=== PATIENT | male | born 1945 | race Caucasian/White ===

== ENCOUNTER → 2017-08-02 00:26 | Outpatient (REF) | payer OTHER, SELFPAY ==
[2017-08-02 00:51] LABS: Microscopic, Urine URINE MICROSCOPIC (MICROSCOPIC)
[2017-08-02 00:57] LABS: Appearance,Urine CLOUDY (Clear); Bilirubin,Urine Negative (Negative); Blood, Urine 1+ (Negative); Color,Urine YELLOW (Yellow); Glucose,Urine (UA) Negative (Negative); Ketones,Urine Negative (Negative); Leukocyte Esterase,Urine 3+ (Negative); Nitrate,Urine POSITIVE (Negative); Protein,Urine TRACE (Negative)
[2017-08-02 00:58] LABS: PH,Urine >= 9.0 (5.0-8.5)
[2017-08-02 01:02] LABS: Amorphous Sediment,Urine 1+ /lpf; Bacteria,Urine 1+ /lpf; RBC,Urine 20-50 #/hpf (0-3); Triple Phosphate Crystal,Urine 2+ /lpf; WBC,Urine 20-50 #/hpf (0-3)
== END ==
LOC: LAB 00:26
PROVIDERS: Visit Provider Internal Medicine
DX: N39.0 Urinary tract infection, site not specified (principal)
CPT/HCPCS: 81001; 87086; 87088; 87186

== ENCOUNTER 2017-09-30 03:50 | Inpatient (IN) ==
[2017-09-30 04:18] LABS: Basophils % 0.2 % (0.1-2.0); Eosinophils # 0.3 K/mm3 (0.0-0.4); Eosinophils % 2.8 % (0.1-12.0); Hematocrit 34.4 % (42.0-52.0); Hemoglobin 10.4 g/dL (14.1-18.0); Lymphocytes # 2.7 K/mm3 (0.7-4.5); Lymphocytes % 23.3 K/mm3 (10-50); Mean Corpuscular HGB Conc 30.2 g/dL (31.8-35.4); Mean Corpuscular Hemoglobin 32.6 pg (27.0-31.2); Mean Corpuscular Volume 108.2 fl (80-94); Mean Platelet Volume 10.6 fl (7.4-10.4); Monocytes # 0.9 K/mm3 (0.1-1.0); Monocytes % 7.8 % (1.7-9.3); Neutrophils # 7.5 K/mm3 (1.8-7.8); Neutrophils % 65.8 % (37.0-80.0); Platelet Count 205 K/mm3 (142-424); Red Blood Count 3.18 M/mm3 (4.60-6.20); Red Cell Distribution Width 15.8 % (11.5-17.5); White Blood Count 11.3 K/mm3 (4.8-10.8)
[2017-09-30 04:43] LABS: Microscopic, Urine URINE MICROSCOPIC (MICROSCOPIC)
[2017-09-30 04:44] LABS: Alanine Aminotransferase 10 U/L (12-78); Albumin/Globulin Ratio 0.3 (1.1-1.8); Alkaline Phosphatase 108 U/L (46-116); Anion Gap 7.3 mEq/L (5-15); Aspartate Amino Transferase 19 U/L (15-37); Bilirubin,Total 0.6 mg/dL (0.2-1.0); Blood Urea Nitrogen 43 mg/dL (7-18); Calcium 8.1 mg/dL (8.5-10.1); Carbon Dioxide 30 mmol/L (21.0-32.0); Chloride 102 mmol/L (98-107); Creatine Kinase 51 U/L (39-308); Globulin 7.8 gm/dl (1.3-3.2); Glucose 159 mg/dL (74-106); Potassium 4.3 mmoL/L (3.5-5.1); Sodium 135 mmol/L (136-145); Total Protein,Serum 9.8 gm/dL (6.4-8.2); Valproic Acid, (Depakene) 57.1 ug/mL (50-100)
[2017-09-30 04:44] LABS: Appearance,Urine CLEAR (Clear); Bilirubin,Urine Negative (Negative); Blood, Urine 3+ (Negative); Color,Urine YELLOW (Yellow); Glucose,Urine (UA) Negative (Negative); Ketones,Urine Negative (Negative); Leukocyte Esterase,Urine 2+ (Negative); Protein,Urine 2+ (Negative); Specific Gravity, Urine 1.015 (1.005-1.030)
[2017-09-30 04:47] LABS: Bacteria,Urine 2+ /lpf
--- NOTE | 2017-09-30 05:12 | Emergency Department Note ---
ED Disposition Clinical Impression: Febrile illness, acute, HCAP (healthcare-associated pneumonia), Renal insufficiency Disposition: Admitted As Inpatient Condition on Discharge: Serious - Critical Care Critical Care Time: No Attestation: On 09/30/17, the high probability of a clinically significant, sudden or life threatening deterioration of the following system(s) required my full and direct attention, intervention and personal management. The time I documented below is in addition to time spent performing reported procedures but includes the following listed in this critical care notation. Medical Decision Making - Medical Records Medical records reviewed: Yes: I reviewed the patient's medical records. - [place] Inquiry Pt receiving controlled substance: No Vital Signs: 09/30/17 03:51 Temperature Source Rectal Pulse Rate [Right Radial] 105 H Respiratory Rate 24 Blood Pressure [Right Arm] 131/68 Blood Pressure Mean [Right Arm] 89 Blood Pressure Position [Right Arm] Sitting 02 Sat by Pulse Oximetry 97 Oxygen Delivery Method Nasal Cannula Oxygen Flow Rate (LPM) 6 - Lab Data Lab results reviewed: Yes: I reviewed the patient's lab results. Lab Results 09/30/17 04:03: WBC 11.3 H, RBC 3.18 L, Hgb 10.4 L, Hct 34.4 L, MCV 108.2 H, MCH 32.6 H, MCHC 30.2 L, RDW 15.8, Plt Count 205, MPV 10.6 H, Neut % (Auto) 65.8 , Lymph % (Auto) 23.3, [place] % (Auto) 7.8, Eos % (Auto) 2.8, Baso % (Auto) 0.2, Neut # (Auto) 7.5, Lymph # (Auto) 2.7, [place] # (Auto) 0.9, Eos # (Auto) 0.3, Baso # (Auto) 0.0 09/30/17 04:03: Sodium 135 L, Potassium 4.3, Chloride 102, Carbon Dioxide 30, Anion Gap 7.3, BUN 43 H, Creatinine 1.15, Estimated Creat Clear 98, Estimated GFR 63, Est GFR ( Amer) 76, Glucose 159 H, Calcium 8.1 L, Total Bilirubin 0.6, AST 19, ALT 10 L, Alkaline Phosphatase 108, Total Creatine Kinase 51, CK-MB (CK-2) < 0.5, CK-MB (CK-2) Rel Index 1.0, Troponin I < 0.02, Total Protein 9.8 H, Albumin 2.0 L, Globulin 7.8 H, Albumin/Globulin Ratio 0.3 L , Total Valproic Acid 57.1 09/30/17 04:03: Lactic Acid 1.6 09/30/17 04:25: Urine Color Yellow, Urine Appearance Clear, Urine pH 6.0, Ur Specific [place] 1.015, Urine Protein 2+, Urine Glucose (UA) Negative, Urine Ketones Negative, Urine Blood 3+, Urine Nitrate Negative, Urine Bilirubin Negative, Urine Urobilinogen 4.0, Ur Leukocyte Esterase 2+ A, Urine RBC 10-20, Urine WBC 10-20, Urine Bacteria 2+ Result diagrams: 09/30/17 04:03 09/30/17 04:03 Orders (Tests/Meds): ED MEDICATIONS Discontinued Medications Generic Name Dose Route Start Last Admin Trade Name Freq PRN Reason Stop Dose Admin Acetaminophen 325 mg 09/30/17 04:15 09/30/17 04:29 Tylenol 325mg Suppository 09/30/17 04:16 Not Given ONCE ONE Acetaminophen 650 mg 09/30/17 04:16 09/30/17 04:29 Acetaminophen 650mg Suppository 09/30/17 04:17 650 mg ONCE ONE Administration ORDERS Category Date Time Status Blood Culture Stat Micro 09/30/17 04:03 Received Sputum Culture & Gram Stain Stat Micro 09/30/17 05:15 Received Urine Culture Stat Micro 09/30/17 04:25 Received - Radiology Data #1 Image(s): Chest Image Reviewed: Yes I reviewed the patient's radiology image Preliminary Findings: Abnormal (possible inflitrates ) - ECG Data Tracing #1 I reviewed this ECG and interpreted as documented below: Arrhythmias present: sinus tach Ischemic changes: non-specific ST-T wave changes - Physician Consults Physician Consulted: francisca Reason -: Admission Resp/SOB HPI - General Chief Complaint: Fever Stated Complaint: FEVER Time Seen by Provider: 09/30/17 05:03 Mode of Arrival: EMS Source of Information: EMS, Medical Record Limitations: Physical Limitations Description of Symptoms (Recalled from ER Triage Doc. by RN): PT HAD NAUSEA/ VOMITING EARLIER TODAY, SUSPECTED ASPIRATION. SENIOR CARE REPORTS FEVER ABOVE 100 DEGREES, RESP DISTRESS AND LOW O2 SATS. - History of Present Illness pt sent from [facility] for eval of inc resp sx after 2 episodes of vomiting and had elevated temp- no other issues reported by ems - MD Complaint: shortness of breath Onset (ago): hour(s) Context: choking/aspiration Severity: moderate Treatment prior to arrival: oxygen - Related Data Home oxygen amount: 4 liters Home Medications Medication Instructions Recorded Confirmed Carboxymethylcellulos/Glycerin 15 ml OP BID 09/30/17 09/30/17 [Refresh Optive Eye Drops] Clonazepam 0.5 mg pe J-TUBE BID 09/30/17 09/30/17 Hydrocodone-Acetamin 10-325 mg 10 mg J-TUBE TID 09/30/17 09/30/17 Metoprolol Tartrate 25 mg J-TUBE BID 09/30/17 09/30/17 Polyethylene Glycol 3350 [Miralax 17 gm J-TUBE DIRECTED PRN 09/30/17 09/30/17 17gm Packet] Topiramate 50 mg J-TUBE BID 09/30/17 09/30/17 Valproic Acid (As Sodium Salt) 750 mg PO BID 09/30/17 09/30/17 [Valproic Acid] Allergies Allergy/AdvReac Type Severity Reaction Status Date / Time tuberculin, purified protein Allergy Mild Verified 09/30/17 04:00 deriva [tuberculin,purif.prot.deriv.] [facility] History I have reviewed the patient's past medical history: Yes Medical History: Denies:: Cancer, Diabetes Mellitus Type 1, Diabetes Mellitus Type 2 Amputation: No Fractures: No - Social History Alcohol Intake: never - Psychiatric History Expresses thoughts of harming self/others: None Suicide Plan Description: No Plan ROS Obtained: Yes unobtainable due to mental status, Yes other (obtained from [facility] ) - Constitutional Constitutional: Reports fever(s) - Eyes Eyes: Reports change in vision, Denies eye discharge - ENT Ears, Nose, Mouth, and Throat: Denies sore throat - Cardiovascular Cardiovascular: Denies chest pain, Reports dyspnea, Reports leg edema - Respiratory Respiratory: Yes chest congestion, Yes cough, Yes dyspnea, No coughing up blood - Gastrointestinal Gastrointestingal: Reports: vomiting. Denies: abdominal pain - Genitourinary Male Genitourinary: Reports other (has chronic davis) - Musculoskeletal Musculoskeletal: Denies joint pain - Integumentary/Breasts Skin/Breast: Denies rash - Neurologic Neurologic: Denies seizure-like activity Physical Exam - General General appearance: in no apparent distress, other (awake but min resp ) - Head Head exam: atraumatic, other (old scars) - Eye Eye exam: Present: other (no focal changes ) - ENT ENT exam: Present: mucous membranes dry - Neck Neck exam: Present: trachea midline - Respiratory Respiratory exam: Present: other (dec bs bilat ). Absent: respiratory distress - Cardiovascular Cardiovascular exam: Present: regular rate, systolic murmur, +S4 - Abdominal Exam Abdominal exam: Present: soft - Extremities Exam Extremities exam: Present: other (bilat edema ) - Back Exam Comment: has known decubitus - Neurological Exam Neurological exam: Present: other (no posturing and obtunded ) - Skin Skin exam: Present: other (skin changes heels and buttocks )
--- NOTE | 2017-09-30 07:38 | Pharmacy Consult Notes ---
[facility] Pharmacy VTE Monitoring - Patient Demographics Admission date: 09/30/17 Report Date: 09/30/17 Time: 07:37 Allergies/Adverse Reactions: Patient Allergies tuberculin, purified protein deriva [tuberculin,purif.prot.deriv.] Allergy (Mild , Verified 09/30/17 06:58) Height: 1.83 m Weight: 103.873 kg Patient Problems: Current Active Problems Febrile illness, acute (Acute) HCAP (healthcare-associated pneumonia) (Acute) Renal insufficiency (Acute) - VTE Risk Labs: VTE Related Lab Results Hgb 10.4 g/dL (14.1-18.0) L 09/30/17 04:03 Hct 34.4 % (42.0-52.0) L 09/30/17 04:03 Plt Count 205 K/mm3 (142-424) 09/30/17 04:03 BUN 43 mg/dL (7-18) H 09/30/17 04:03 Creatinine 1.15 mg/dL (0.70-1.30) 09/30/17 04:03 Estimated Creat Clear 98 mL/min (0-300) 09/30/17 04:03 Was VTE Risk Assessment Performed: Yes VTE Score: 4 VTE Risk Level: Low Risk Clinical Trial Participant: No - Prophylaxis VTE Prophylaxis Ordered?: Yes Types of VTE Prophylaxis: TEDS Knee High
--- NOTE | 2017-09-30 09:45 | History & Physical Report ---
*Admission Date: 09/30/17 *Chief complaint: Respiratory distress *History of present illness: Mr Robles is a 72 year old male resident of [facility] and patient of Dr. Dooley who developed an increase in respiratory symptoms and temperature. He also vomited x2. Patient has multiple medical issues to include pressures ulcers, History of traumatic brain injury, HTN, chronic kidney disease, anemia, dementia and convulsions. He was sent to [facility] ER per EMS for further evaluation and treatment. He was felt to have a pneumonia and thus admitted. Patient does not communicate and information is obtained from his record and from nursing. I spoke with the nursing at [place]. Patient is bedfast. He receives Tube feeding of Jevity 1.5 at 45ml/hour with 200ml flushes q4h. [facility] History I have reviewed the patient's past medical history: Yes Medical History: Reports:: Dementia, Depression, Hypertension, Peripheral Vascular Disease, Seizures Denies:: Cancer, Diabetes Mellitus Type 1, Diabetes Mellitus Type 2, Internal Pacemaker, MRSA Other Medical History: Reports: Anemia, Osteoporosis Other Surgeries: No: Pacemaker Amputation: No Fractures: No - *Social History Alcohol Intake: never Occupational Status: disabled Housing: alf - Psychiatric History Expresses thoughts of harming self/others: None Suicide Plan Description: No Plan *Family Hx:: Unable to obtain Review of Systems - Review of Systems Review of systems:: unable to obtain - *Neurologic Denies seizure-like activity Meds Home Medications Medication Instructions Recorded Confirmed Type Acetaminophen 500 mg G-TUBE Q6HP PRN 09/30/17 09/30/17 History Albuterol Sulfate [Albuterol 2.5 mg IH Q6HP PRN 09/30/17 09/30/17 History 0.083% 2.5mg/3mL neb] Bisacodyl [Bisacodyl 10mg Supp] 10 mg RC DAILYP PRN 09/30/17 09/30/17 History Carboxymethylcellulos/Glycerin 15 ml OP BID 09/30/17 09/30/17 History [Refresh Optive Eye Drops] Hydrocodone/Acetaminophen 1 each J-TUBE TID 09/30/17 09/30/17 History [Hydrocodone-Acetamin 10-325 mg] Hyoscyamine Sulfate 0.125 mg PO Q4HP PRN 09/30/17 09/30/17 History Lactulose [Lactulose 10gm/15ml 10 gm G-TUBE DAILYP PRN 09/30/17 09/30/17 History Oral Soln] Loperamide HCl [Loperamide] 2 mg G-TUBE Q3HP PRN 09/30/17 09/30/17 History Metoprolol Tartrate [Lopressor 25 mg J-TUBE BID 09/30/17 09/30/17 History 25mg tablet] Ondansetron HCl [Ondansetron 4mg 4 mg G-TUBE DAILYP PRN 09/30/17 09/30/17 History Tab] Polyethylene Glycol 3350 [Miralax 17 gm G-TUBE DIRECTED PRN 09/30/17 History 17gm Packet] Promethazine HCl [Promethazine 25 mg RC Q6HP PRN 09/30/17 09/30/17 History 50mg Supp] Topiramate 50 mg G-TUBE BID 09/30/17 09/30/17 History Valproic Acid (As Sodium Salt) 750 mg PO TID 09/30/17 09/30/17 History [Valproic Acid] clonazePAM [Klonopin] 0.5 mg J-TUBE BID 09/30/17 09/30/17 History guaiFENesin [Guaifenesin] 400 mg G-TUBE TID PRN 09/30/17 09/30/17 History guaiFENesin [Robafen] 200 mg G-TUBE Q4HP PRN 09/30/17 09/30/17 History Allergies Allergy/AdvReac Type Severity Reaction Status Date / Time tuberculin, purified protein Allergy Mild Verified 09/30/17 06:58 deriva [tuberculin,purif.prot.deriv.] Exam Vital signs and Labs for Last 24 Hours: Temp Pulse Resp BP Pulse Ox 99.6 F 93 H 20 135/63 94 L 09/30/17 07:22 09/30/17 07:22 09/30/17 07:22 09/30/17 07:22 09/30/17 07:22 I & O for Last 24 hours: Intake & Output 09/27/17 09/28/17 09/29/17 09/30/17 11:59 11:59 11:59 11:59 Intake Total 0 / 0 Output Total 650 / 650 Balance -650 / -650 Weight 229 lb Radiology Reports for the Last 24 Hours: 09/30/17 CXR IMPRESSION: Lower lung volumes with atelectasis or infiltrate in the lung bases - Constitutional chronically ill appearing Comments: many secretions requiring suctioning - *Routine HEENT Exam Head: Present: normocephalic, atraumatic ENT: Present: mucous membranes moist Comments: many secretions - *Routine Respiratory Exam Present: rhonchi (bilateral) - *Routine Cardiovascular Exam Present: RRR - *Routine Abdominal Exam Present: soft, normoactive bowel sounds. Absent: distended Comments: GT and SP cath - *Routine Extremities Exam Present: edema - *Routine Skin Exam Present: wounds (bilateral heels and buttocks/coccyx) - *Routine Neurological Exam Present: sensory deficit, motor deficit responds by opening his eyes Assessment and Plan (1) Personal history of traumatic brain injury Current visit: Yes Status: Chronic Category: Medical Code(s): Z87.820 - Personal history of traumatic brain injury (2) Pressure ulcer of both heels Current visit: Yes Status: Acute Category: Medical Code(s): L89.619 - Pressure ulcer of right heel, unspecified stage; L89.629 - Pressure ulcer of left heel, unspecified stage (3) Pressure ulcer of buttock Current visit: Yes Status: Acute Category: Medical Code(s): L89.309 - Pressure ulcer of unspecified buttock, unspecified stage (4) PVD (peripheral vascular disease) Current visit: Yes Status: Chronic Category: Medical Code(s): I73.9 - Peripheral vascular disease, unspecified (5) Iron deficiency anemia Current visit: Yes Status: Acute Category: Medical Code(s): D50.9 - Iron deficiency anemia, unspecified (6) Convulsions Current visit: Yes Status: Chronic Category: Medical Code(s): R56.9 - Unspecified convulsions (7) Dementia Current visit: Yes Status: Chronic Category: Medical Code(s): F03.90 - Unspecified dementia without behavioral disturbance (8) Febrile illness, acute Current visit: Yes Status: Acute Category: Medical Code(s): R50.9 - Fever , unspecified (9) HCAP (healthcare-associated pneumonia) Current visit: Yes Status: Acute Category: Medical Code(s): J18.9 - Pneumonia, unspecified organism - Assessment and plan all Dx Assessment and Plan for all problems:: IVF; some of regular meds have been restarted; ABX. cultures have been obtained of the heels as well
--- NOTE | 2017-09-30 11:14 | Pharmacy Consult Notes ---
- Pharmacy Consult Date: 09/30/17 Time: 11:14 Referring provider: DR. CASTILLO Reason for Consult:: VANCOMYCIN DOSING Allergies and ADEs:: Allergies Allergy/AdvReac Type Severity Reaction Status Date / Time tuberculin, purified protein Allergy Mild Verified 09/30/17 06:58 deriva [tuberculin,purif.prot.deriv.] Home Medications:: Home Medications Medication Instructions Recorded Confirmed Type Acetaminophen 500 mg G-TUBE Q6HP PRN 09/30/17 09/30/17 History Albuterol Sulfate [Albuterol 2.5 mg IH Q6HP PRN 09/30/17 09/30/17 History 0.083% 2.5mg/3mL neb] Bisacodyl [Bisacodyl 10mg Supp] 10 mg RC DAILYP PRN 09/30/17 09/30/17 History Carboxymethylcellulos/Glycerin 15 ml OP BID 09/30/17 09/30/17 History [Refresh Optive Eye Drops] Clonazepam 0.5 mg pe G-TUBE BID 09/30/17 09/30/17 History Hydrocodone-Acetamin 10-325 mg 10 mg G-TUBE TID 09/30/17 09/30/17 History Hyoscyamine Sulfate 0.125 mg PO Q4HP PRN 09/30/17 09/30/17 History Lactulose [Lactulose 10gm/15ml 10 gm G-TUBE DAILY 09/30/17 09/30/17 History Oral Soln] Loperamide HCl [Loperamide] 2 mg G-TUBE Q3HP PRN 09/30/17 09/30/17 History Metoprolol Tartrate 25 mg G-TUBE BID 09/30/17 09/30/17 History Ondansetron HCl [Ondansetron 4mg 4 mg G-TUBE DAILY 09/30/17 09/30/17 History Tab] Polyethylene Glycol 3350 [Miralax 17 gm G-TUBE DIRECTED PRN 09/30/17 History 17gm Packet] Promethazine HCl [Promethazine 25 mg RC Q6HP PRN 09/30/17 09/30/17 History 50mg Supp] Topiramate 50 mg G-TUBE BID 09/30/17 09/30/17 History Valproic Acid (As Sodium Salt) 750 mg PO BID 09/30/17 09/30/17 History [Valproic Acid] guaiFENesin [Guaifenesin] 400 mg G-TUBE TID PRN 09/30/17 09/30/17 History guaiFENesin [Robafen] 200 mg G-TUBE Q4HP PRN 09/30/17 09/30/17 History Height: 1.83 m Weight: 103.873 kg Laboratory Results:: CR=1.15 Medical History: Reports:: Dementia, Depression, Hypertension, Osteoporosis, Peripheral Vascular Disease, Seizures Denies:: Cancer, Diabetes Mellitus Type 1, Diabetes Mellitus Type 2, Internal Pacemaker, MRSA Assessment and Plan (1) Personal history of traumatic brain injury Current visit: Yes Status: Chronic Category: Medical Code(s): Z87.820 - Personal history of traumatic brain injury (2) Pressure ulcer of both heels Current visit: Yes Status: Acute Category: Medical Code(s): L89.619 - Pressure ulcer of right heel, unspecified stage; L89.629 - Pressure ulcer of left heel, unspecified stage (3) Pressure ulcer of buttock Current visit: Yes Status: Acute Category: Medical Code(s): L89.309 - Pressure ulcer of unspecified buttock, unspecified stage (4) PVD (peripheral vascular disease) Current visit: Yes Status: Chronic Category: Medical Code(s): I73.9 - Peripheral vascular disease, unspecified (5) Iron deficiency anemia Current visit: Yes Status: Acute Category: Medical Code(s): D50.9 - Iron deficiency anemia, unspecified (6) Convulsions Current visit: Yes Status: Chronic Category: Medical Code(s): R56.9 - Unspecified convulsions (7) Dementia Current visit: Yes Status: Chronic Category: Medical Code(s): F03.90 - Unspecified dementia without behavioral disturbance (8) Febrile illness, acute Current visit: Yes Status: Acute Category: Medical Code(s): R50.9 - Fever , unspecified (9) HCAP (healthcare-associated pneumonia) Current visit: Yes Status: Acute Category: Medical Code(s): J18.9 - Pneumonia, unspecified organism - Assessment and plan all Dx Assessment and Plan for all problems:: BASED ON PATIENT FACTORS, RECOMMEND VANCOMYCIN 2250 MG IV ONCE, THEN VANCOMYCIN 2 GM IV Q18H. PHARMACY WILL FOLLOW DAILY AND ADJUST APPROPRIATE.
[2017-10-01 07:29] LABS: Basophils % 0.1 % (0.1-2.0); Eosinophils # 0.1 K/mm3 (0.0-0.4); Hematocrit 30.1 % (42.0-52.0); Hemoglobin 9.2 g/dL (14.1-18.0); Lymphocytes # 1.7 K/mm3 (0.7-4.5); Lymphocytes % 25.5 K/mm3 (10-50); Mean Corpuscular HGB Conc 30.7 g/dL (31.8-35.4); Mean Corpuscular Hemoglobin 32.6 pg (27.0-31.2); Mean Corpuscular Volume 106.4 fl (80-94); Mean Platelet Volume 10.4 fl (7.4-10.4); Monocytes # 0.6 K/mm3 (0.1-1.0); Monocytes % 8.6 % (1.7-9.3); Neutrophils # 4.1 K/mm3 (1.8-7.8); Neutrophils % 63.7 % (37.0-80.0); Platelet Count 146 K/mm3 (142-424); Red Blood Count 2.83 M/mm3 (4.60-6.20); Red Cell Distribution Width 15.6 % (11.5-17.5); White Blood Count 6.4 K/mm3 (4.8-10.8)
[2017-10-01 07:39] LABS: Anion Gap 7.8 mEq/L (5-15); Potassium 3.8 mmoL/L (3.5-5.1)
--- NOTE | 2017-10-01 08:24 | Progress Note ---
Addendum entered and electronically signed by Sybil Pro APRN 10/01/17 08: 50: Original Note: Internal Medicine - PN: Subj *Date: 10/01/17 *Time: 08:21 Interval history: Patient is nonverbal. Per nursing: Requires frequent suctioning. He has had no residual from his G-tube. Has an adequate urinary output for suprapubic catheter. Patient was visited by hospice executive director yesterday who states she has a hospice patient. He is a sam of the formerly [facility] and nursing staff has been able to reach his power of workers compensation attorney. Exam Vital signs and Labs for Last 24 Hours: Temp Pulse Resp BP Pulse Ox 98.4 F 80 20 105/50 96 10/01/17 07:51 10/01/17 07:51 10/01/17 07:51 10/01/17 07:51 10/01/17 07:51 Laboratory Results - last 24 hr 10/01/17 07:15: WBC 6.4 D, RBC 2.83 L, Hgb 9.2 L, Hct 30.1 L, MCV 106.4 H, MCH 32.6 H, MCHC 30.7 L, RDW 15.6, Plt Count 146 D, MPV 10.4, Neut % (Auto) 63.7, Lymph % (Auto) 25.5, [place] % (Auto) 8.6, Eos % (Auto) 2.0, Baso % (Auto) 0.1, Neut # (Auto) 4.1, Lymph # (Auto) 1.7, [place] # (Auto) 0.6, Eos # (Auto) 0.1, Baso # (Auto) 0.0 10/01/17 07:15: Sodium 139, Potassium 3.8, Chloride 106, Carbon Dioxide 29, Anion Gap 7.8, BUN 42 H, Creatinine 1.07, Estimated Creat Clear 96, Estimated GFR 68, Est GFR ( Amer) 82, Glucose 110 H, Phosphorus 4.0, Magnesium 2.7 H I & O for Last 24 hours: Intake & Output 09/28/17 09/29/17 09/30/17 10/01/17 11:59 11:59 11:59 11:59 Intake Total 350 / 350 Output Total 850 / 850 Balance -500 / -500 Weight 235 lb 9 oz Microbiology Reports for the Last 24 Hours: Microbiology 09/30/17 Unknown Foot,Left Gram Stain - Final 09/30/17 Unknown Foot,Left Wound Culture - Preliminary Gram Positive Cocci - Constitutional no acute distress Comments: Nonverbal - *Routine Respiratory Exam Comments: Periods of apnea. Bilateral coarse rhonchi throughout. - *Routine Cardiovascular Exam Present: RRR - *Routine Abdominal Exam Present: soft, normoactive bowel sounds Comments: G-tube and suprapubic catheter in place. - *Routine Extremities Exam Absent: edema - *Routine Neurological Exam Nonverbal; he does open his eyes when his name is called. Assessment and Plan (1) Personal history of traumatic brain injury Current visit: Yes Status: Chronic Category: Medical Code(s): Z87.820 - Personal history of traumatic brain injury (2) Pressure ulcer of both heels Current visit: Yes Status: Acute Category: Medical Code(s): L89.619 - Pressure ulcer of right heel, unspecified stage; L89.629 - Pressure ulcer of left heel, unspecified stage (3) Pressure ulcer of buttock Current visit: Yes Status: Acute Category: Medical Code(s): L89.309 - Pressure ulcer of unspecified buttock, unspecified stage (4) PVD (peripheral vascular disease) Current visit: Yes Status: Chronic Category: Medical Code(s): I73.9 - Peripheral vascular disease, unspecified (5) Iron deficiency anemia Current visit: Yes Status: Acute Category: Medical Code(s): D50.9 - Iron deficiency anemia, unspecified (6) Convulsions Current visit: Yes Status: Chronic Category: Medical Code(s): R56.9 - Unspecified convulsions (7) Dementia Current visit: Yes Status: Chronic Category: Medical Code(s): F03.90 - Unspecified dementia without behavioral disturbance (8) Febrile illness, acute Current visit: Yes Status: Acute Category: Medical Code(s): R50.9 - Fever , unspecified (9) HCAP (healthcare-associated pneumonia) Current visit: Yes Status: Acute Category: Medical Code(s): J18.9 - Pneumonia, unspecified organism (10) UTI (urinary tract infection) Current visit: Yes Status: Acute Category: Medical Code(s): N39.0 - Urinary tract infection, site not specified
[2017-10-01 11:49] VITALS: BP 115/59
--- NOTE | 2017-10-01 12:10 | Discharge Summary ---
General - General Admission date: 09/30/17 Discharge date: 10/01/17 HPI HPI: Mr Robles is a 72 year old male resident of [facility] and patient of Dr. Vaughn's who developed an increase in respiratory symptoms and temperature. He also vomited x2. Patient has multiple medical issues to include pressures ulcers, History of traumatic brain injury, HTN, chronic kidney disease, anemia, dementia and convulsions. He was sent to [facility] ER per EMS for further evaluation and treatment. He was felt to have a pneumonia and thus admitted. Patient does not communicate and information is obtained from his record and from nursing. I spoke with nursing at [facility]. Patient is bedfast. He receives Tube feeding of Jevity 1.5 at 45ml/hour with 200ml flushes q4h. Hospital Course Hospital Course: On admission patient was started on IV Azactam and Vancomycin, Duonebs and some of his regular meds. Cultures were obtained from the wounds on both heels. Wound care was initiated for these wounds as well as wound on buttocks and coccyx. UA indicated UTI with pending culture results at discharge. Patient had a large amount of secretion and had to be suctioned q30 minutes. CXR revealed lower lung volumes with atelectasis or infiltrate in the lung. bases. Repeated checks indicated no stomach residual of fluids. Patient continued with coarse bilateral rhonchi. O2 sats were stable. He did have periods of apnea. Tube feedings were to be restarted today. Nursing staff was made aware that patient was in Hospice. [facility] management confirmed this after speaking with state guardian. Direction was given that patient is to be comfort measures only. Therefore patient will be discharged back to [facility] with meds and tube feedings that he received prior to [facility] admission. ABX will be changed to PO to be given per [facility]. Patient discharged back to [facility] to the services of Dr. Vaughn in poor and guarded condition with the services of [facility]. Objective Vital signs: Temp Pulse Resp BP Pulse Ox 98.5 F 73 14 115/59 98 10/01/17 11:48 10/01/17 11:48 10/01/17 11:48 10/01/17 11:48 10/01/17 11:48 Narrative: - Constitutional no acute distress Comments: Nonverbal - *Routine Respiratory Exam Comments: Periods of apnea. Bilateral coarse rhonchi throughout. - *Routine Cardiovascular Exam Present: RRR - *Routine Abdominal Exam Present: soft, normoactive bowel sounds Comments: G-tube and suprapubic catheter in place. - *Routine Extremities Exam Absent: edema - *Routine Neurological Exam Nonverbal; he does open his eyes when his name is called. Results Labs on day of discharge: Labs from last 24 hours 10/01/17 10/01/17 07:15 07:15 WBC 6.4 D RBC 2.83 L Hgb 9.2 L Hct 30.1 L MCV 106.4 H MCH 32.6 H MCHC 30.7 L RDW 15.6 Plt Count 146 D MPV 10.4 Neut % (Auto) 63.7 Lymph % (Auto) 25.5 Edmunds % (Auto) 8.6 Eos % (Auto) 2.0 Baso % (Auto) 0.1 Neut # (Auto) 4.1 Lymph # (Auto) 1.7 Edmunds # (Auto) 0.6 Eos # (Auto) 0.1 Baso # (Auto) 0.0 Sodium 139 Potassium 3.8 Chloride 106 Carbon Dioxide 29 Anion Gap 7.8 BUN 42 H Creatinine 1.07 Estimated Creat Clear 96 Estimated GFR 68 Est GFR ( Amer) 82 Glucose 110 H Phosphorus 4.0 Magnesium 2.7 H Preliminary micro results at discharge 09/30/17 Unknown Wound Culture - Preliminary Foot,Left Gram Positive Cocci - Imaging and Cardiology Chest x-ray Additional comments: 09/30/17 CXR IMPRESSION: Lower lung volumes with atelectasis or infiltrate in the lung bases DS: Diagnosis - Discharge Diagnosis (1) Personal history of traumatic brain injury Status: Chronic (2) Pressure ulcer of both heels Status: Acute (3) Pressure ulcer of buttock Status: Acute (4) PVD (peripheral vascular disease) Status: Chronic (5) Iron deficiency anemia Status: Acute (6) Convulsions Status: Chronic (7) Dementia Status: Chronic (8) Febrile illness, acute Status: Acute (9) HCAP (healthcare-associated pneumonia) Status: Acute (10) Renal insufficiency Status: Acute (11) UTI (urinary tract infection) Status: Acute Discharge Plan - Patient Discharge Instructions ACTIVITY: Bed rest DIET: other Additional Instructions: Tube feedings as before admission to [facility] - Follow up Plan Unknown provider or service follow up:: Dr. Johana Beltran: [facility] Home Medications: Home Medications Medication Instructions Recorded Confirmed Type Acetaminophen 500 mg G-TUBE Q6HP PRN 09/30/17 09/30/17 History Albuterol Sulfate [Albuterol 2.5 mg IH Q6HP PRN 09/30/17 09/30/17 History 0.083% 2.5mg/3mL neb] Bisacodyl [Bisacodyl 10mg Supp] 10 mg RC DAILYP PRN 09/30/17 09/30/17 History Carboxymethylcellulos/Glycerin 15 ml OP BID 09/30/17 09/30/17 History [Refresh Optive Eye Drops] Hydrocodone/Acetaminophen 1 each J-TUBE TID 09/30/17 09/30/17 History [Hydrocodone-Acetamin 10-325 mg] Hyoscyamine Sulfate 0.125 mg PO Q4HP PRN 09/30/17 09/30/17 History Lactulose [Lactulose 10gm/15ml 10 gm G-TUBE DAILYP PRN 09/30/17 09/30/17 History Oral Soln] Loperamide HCl [Loperamide] 2 mg G-TUBE Q3HP PRN 09/30/17 09/30/17 History Metoprolol Tartrate [Lopressor 25 mg J-TUBE BID 09/30/17 09/30/17 History 25mg tablet] Ondansetron HCl [Ondansetron 4mg 4 mg G-TUBE DAILYP PRN 09/30/17 09/30/17 History Tab] Polyethylene Glycol 3350 [Miralax 17 gm G-TUBE DIRECTED PRN 09/30/17 History 17gm Packet] Promethazine HCl [Promethazine 25 mg RC Q6HP PRN 09/30/17 09/30/17 History 50mg Supp] Topiramate 50 mg G-TUBE BID 09/30/17 09/30/17 History Valproic Acid (As Sodium Salt) 750 mg PO TID 09/30/17 09/30/17 History [Valproic Acid] clonazePAM [Klonopin] 0.5 mg J-TUBE BID 09/30/17 09/30/17 History guaiFENesin [Guaifenesin] 400 mg G-TUBE TID PRN 09/30/17 09/30/17 History guaiFENesin [Robafen] 200 mg G-TUBE Q4HP PRN 09/30/17 09/30/17 History Prescriptions/Medication Reconciliation: No Action Topiramate 50 mg G-TUBE BID Polyethylene Glycol 3350 [Miralax 17gm Packet] 17 gm G-TUBE DIRECTED PRN PRN Reason: Constipation Carboxymethylcellulos/Glycerin [Refresh Optive Eye Drops] 15 ml OP BID Acetaminophen 500 mg G-TUBE Q6HP PRN PRN Reason: HEADACHE/FEVER Bisacodyl [Bisacodyl 10mg Supp] 10 mg RC DAILYP PRN PRN Reason: Constipation Hyoscyamine Sulfate 0.125 mg PO Q4HP PRN PRN Reason: Secretions guaiFENesin [Robafen] 200 mg G-TUBE Q4HP PRN PRN Reason: Cough Albuterol Sulfate [Albuterol 0.083% 2.5mg/3mL neb] 2.5 mg IH Q6HP PRN PRN Reason: soa Metoprolol Tartrate [Lopressor 25mg tablet] 25 mg J-TUBE BID Hydrocodone/Acetaminophen [Hydrocodone-Acetamin 10-325 mg] 1 each J-TUBE TID Valproic Acid (As Sodium Salt) [Valproic Acid] 750 mg PO TID guaiFENesin [Guaifenesin] 400 mg G-TUBE TID PRN PRN Reason: Cough Lactulose [Lactulose 10gm/15ml Oral Soln] 10 gm G-TUBE DAILYP PRN PRN Reason: Constipation Loperamide HCl [Loperamide] 2 mg G-TUBE Q3HP PRN PRN Reason: Diarrhea Ondansetron HCl [Ondansetron 4mg Tab] 4 mg G-TUBE DAILYP PRN PRN Reason: Nausea Promethazine HCl [Promethazine 50mg Supp] 25 mg RC Q6HP PRN PRN Reason: Nausea clonazePAM [Klonopin] 0.5 mg J-TUBE BID
== END 2017-10-01 15:15 | disposition hospice, inpatient (51) ==
LOC: ER 03:50 → 2ND 03:50
PROVIDERS: ADMIT Family Medicine; ATTEND Family Medicine